=== PATIENT | male | born 1990 | race Caucasian/White ===

== ENCOUNTER 2018-01-15 00:22 | Emergency (ER) | payer OTHER ==
[~2018-01-15] VITALS: Ht 180.3 cm; Wt 97.5 kg
[~2018-01-15 00:22] MED LIST: ALBUTEROL2.5 MG/0.1; NAPROSYN500 MG PO
[2018-01-15] MEDS ORDERED: ADDERALL 10 MG10 MG (00:28)
[2018-01-15 01:02] LABS: ABSOLUTE BASOPHILS 0.1 thou/uL (0.0-0.2); ABSOLUTE EOSINOPHILS 0.2 thou/uL (0.0-0.7); ABSOLUTE LYMPHOCYTES 3.1 thou/uL (0.8-5.3); ABSOLUTE MONOCYTES 0.8 thou/uL (0.0-1.2); ABSOLUTE NEUTROPHILS 7.1 thou/uL (1.6-8.1); BASOPHILS 0.5 %; EOSINOPHILS 2.2 %; HEMATOCRIT 41.4 % (42.0-52.0); HEMOGLOBIN 13.9 gm/dL (14.0-18.0); LYMPHOCYTES 27.8 %; MCH 29.5 pg (26.0-34.0); MCHC 33.6 g/dL (28.0-37.0); MCV 87.7 fL (80.0-100.0); MONOCYTES 6.8 %; MPV 8.4 fl. (7.2-11.1); NUCLEATED RBCS 0 /100WBC; PLATELET COUNT* 235 thou/uL (150-400); POLYS 62.7 %; RBC 4.72 mil/uL (4.50-6.00); WBC 11.3 thou/uL (4.0-11.0)
[2018-01-15 01:04] LABS: CALCIUM 8.3 mg/dL (8.5-10.1); CREATININE 0.9 mg/dL (0.6-1.3); POTASSIUM 3.1 mmol/L (3.5-5.1)
[2018-01-15 01:09] LABS: ALBUMIN 3.6 g/dL (3.4-5.0); TOTAL BILIRUBIN 0.4 mg/dL (<0.1-1.0); TOTAL PROTEIN 6.6 g/dL (6.4-8.2)
[2018-01-15] MEDS ORDERED: ZOFRAN ODT4 MG PO (04:01)
[2018-01-15] MEDS ORDERED: CIPROFLOXACIN500 M1 PO (04:01)
[2018-01-15] MEDS ORDERED: FLAGYL500 MG PO (04:01)
[2018-01-15] MEDS ORDERED: PERCOCET 7.5-31 EACH PO (04:01)
[2018-01-15 04:41] VITALS: BP 107/68
== END 2018-01-15 04:43 | disposition home or self-care (01) ==
LOC: M.ERS 00:22
PROVIDERS: Emergency Medicine
DX: K52.9 Noninfective gastroenteritis and colitis, unspecified (principal); Z88.0 Allergy status to penicillin